=== PATIENT | female | born 1950 | race Caucasian/White ===

== ENCOUNTER → 2016-11-16 | Day surgery (SDC) | payer MEDICARE ==
[~2016-11-16] MED LIST: ALPR0.5T3 PO; BUPIVACAINE HCL PF 0.75% 30 ML VIAL ONE; CALC600T10 PO; HYDR-3580 PO; LUTE20CA PO; MULT1TAB84 PO; NATU400T PO; PROPOFOL 200 MG/20 ML AMP IV ONE; RABE1TAB PO; TEMA30CA PO; TRIAMCINOLONE ACETONIDE 40 MG/ML VIAL I-ARTICULR ONE
--- NOTE | 2016-11-18 19:19 | M6 ---
cc: JUSTIN MATA M.D. DATE 11/16/2016 1950 PROCEDURE Fluoroscopically guided injection right lumbar facet joints (right L2-3, L3-4, L4-5 and L5-S1 facet joints). History and physical was completed and signed. Consent was signed. Procedure site was marked. Medications were listed and reconciled. Pain score was recorded. Allergies were noted. Time out was taken. Fluoroscopy time was recorded where applicable. Sedation was administered or directed by Dr. Mata. The patient was given oxygen. The patient was monitored by a registered nurse. Total procedure time was greater than 15 minutes. IV was started, blood pressure cuff, pulse oximeter and EKG were applied. The patient was placed in the prone position on a Ricardo table sedated with small amounts of propofol titrated to effect. Vital signs were monitored and remained stable throughout the procedure. Lumbar area was prepped with alcohol and 10% Betadine solution and draped with sterile drapes. Fluoroscopy was used in a [facility] dog view to clearly visualize the right lumbar facet joints at L2-3, L3-4, L4-5 and L5-S1. Separate sterile 3-1/2-inch 25-gauge spinal needles were advanced into these joints under fluoroscopic guidance. There was negative aspiration for blood or any other type of fluid. At each location, the patient was given 1 mL Marcaine 0.75% which contained 10 mg of Kenalog. Following the procedure, the patient was taken to the recovery room with stable vital signs neurologically intact. She will be evaluated immediately and with followup to determine if she has a subjective decrease in her usual pain and a corresponding objective increase in her functional capabilities. W. MD JOEY Herrera/ /9:06 AM /7:11 PM
== END | disposition home or self-care (01) ==
LOC: PHSDC 07:36
PROVIDERS: ATTEND Pain Medicine Interventional Pain Medicine
DX: M54.5 Low back pain (principal)
CPT/HCPCS: 64493; 64494; 64495; 99152; J3301

== ENCOUNTER → 2017-05-10 | Day surgery (SDC) | payer MEDICARE ==
[~2017-05-10] MED LIST changes: +ALEV220T14 PO; -BUPIVACAINE HCL PF 0.75% 30 ML VIAL ONE; +IOHEXOL 180 MG/ML 20 ML VIAL (for RAD DIAG) EPIDURAL ONE; +LACTCAP8 PO; +LIDOCAINE HCL 1% 30 ML VIAL NERV BLOCK ONE; +MEPERIDINE HCL 25 MG/ML VIAL IV ONE; -TRIAMCINOLONE ACETONIDE 40 MG/ML VIAL I-ARTICULR ONE; +TRIAMCINOLONE ACETONIDE 40 MG/ML VIAL NERV BLOCK ONE
--- NOTE | 2017-05-10 09:50 | M6 ---
cc: Herman MATA DATE 05/10/2017 DATE OF 1950 PROCEDURE Fluoroscopically guided left L4-5 and left L5-S1 transforaminal epidural steroid injection. PROCEDURE NOTE History and physical was completed and signed. Consent was signed. Procedure site was marked. Medications were listed and reconciled. Pain score was recorded. Allergies were noted. Time out was taken. Fluoroscopy time was recorded where applicable. Sedation was administered or directed by Dr. Mata. The patient was given oxygen. The patient was monitored by a registered nurse. Total procedure time was greater than 15 minutes. An IV was started, blood pressure cuff, pulse oximeter and EKG were applied. The patient was placed in the prone position on a Ricardo table, sedated with small amounts of Versed and propofol titrated to effect. Vital signs were monitored and remained stable throughout the procedure. The patient remained responsive throughout the procedure. The lumbar area was scrubbed with antimicrobial solution, prepped with 10% Betadine solution, and draped with sterile drapes. Fluoroscopy was used in both the AP and lateral projections to clearly visualize the left L4-5 and left L5-S1 neural foramen. Then a sterile 22-gauge, 3-1/2 inch Chiba needle was advanced under fluoroscopic guidance into the dorsal most aspect of the foramen. There was negative aspiration for blood or CSF. There was no reported paresthesias by the patient. There was no washout of 2 mL of Omnipaque. Then after waiting approximately 60 seconds, the patient was slowly given 3 mL of 1% Xylocaine, 3 mL of Omnipaque and 40 mg of Kenalog at that location. Following this, the patient was taken to the recovery room with stable vital signs, neurologically intact. MD JOEY Dickens/TIMO /9:36 AM /9:43 AM
== END | disposition home or self-care (01) ==
LOC: PHSDC 08:21
PROVIDERS: ATTEND Pain Medicine Interventional Pain Medicine
DX: M54.9 Dorsalgia, unspecified (principal)
CPT/HCPCS: 64483; 64484; 99152; J2175; J3301; Q9965

== ENCOUNTER 2017-06-11 14:41 | Emergency (ER) | payer MEDICARE ==
[~2017-06-11] VITALS: Ht 152.4 cm; Wt 56.3 kg
[~2017-06-11 14:41] MED LIST changes: -IOHEXOL 180 MG/ML 20 ML VIAL (for RAD DIAG) EPIDURAL ONE; -LIDOCAINE HCL 1% 30 ML VIAL NERV BLOCK ONE; -MEPERIDINE HCL 25 MG/ML VIAL IV ONE; -NATU400T PO; -PROPOFOL 200 MG/20 ML AMP IV ONE; -TRIAMCINOLONE ACETONIDE 40 MG/ML VIAL NERV BLOCK ONE
[2017-06-11 14:59] VITALS: BP 157/70; PULSE 89; RESP 16; TEMP 98.1; O2SAT 98
--- NOTE | 2017-06-11 15:30 | PD ---
HPI Chief Complaint: Musculoskeletal Complaint Time Seen by Provider: 15:25 Travel History International Travel<30 days: No Contact w/Intl Traveler<30days: No Traveled to known affect area: No History of Present Illness HPI 66-year-old female presents emergency Department with complaint of right lateral foot pain after tripping over a curb and falling. Denies hitting her head or loss of consciousness. Denies neck pain or back pain. Denies paresthesias, loss of sensation, decreased range of motion, decreased rate to the affected extremity. Has been ambulatory on the affected foot. Describes pain as a throbbing, stabbing sensation. Rates pain 6/10. Worse with ambulation. Decreased at rest. Has taken Aleve for symptom management. Has no other medical complaints. No known allergies. No other modifying factors or associated signs and symptoms. PFSH Past Medical History Cancer: Yes (hx of cervical cancer) Cardiovascular Problems: No Diabetes: No Endocrine: No Genitourinary: No Hepatitis: No Hiatal Hernia: No Immune Disorder: No Musculoskeletal: Yes (chronic back pain) Neurologic: No Psychiatric: Yes (pt states she takes lowest dose xanax prn) Reproductive: No Respiratory: No Thyroid Disease: No Tetanus Vaccination: Unknown Influenza Vaccination: Yes ?: Not Past Surgical History Gynecologic Surgery: Yes (hysterectomy) Hysterectomy: Yes Pacemaker: No Social History Alcohol Use: Yes (occassional ) Tobacco Use: No Substance Use: No Allergies-Medications (Allergen,Severity, Reaction): Coded Allergies: No Known Allergies (Verified Adverse Reaction, Unknown, 06/11/17) Reported Meds & Prescriptions Reported Meds & Active Scripts Active Reported Rabeprazole (Rabeprazole Sodium) 20 Mg Tab 20 Mg PO DAILY Review of Systems Except as stated in HPI: all other systems reviewed are Neg Physical Exam Narrative GENERAL: Well-nourished, well-developed female patient, in no acute distress SKIN: Warm and dry. HEAD: Atraumatic. Normocephalic. EYES: Pupils equal and round. No scleral icterus. No injection or drainage. ENT: Mucosa pink and moist. Airway patent. NECK: Trachea midline. CARDIOVASCULAR: Regular rate. RESPIRATORY: No accessory muscle use. GASTROINTESTINAL: Flat. MUSCULOSKELETAL: Lateral aspect of right foot with minimal edema and ecchymosis noted; no obvious deformity; with tenderness on palpation. Right lower extremity is supple and nontense with 2+ pedal pulse and sensory intact. No obvious deformities. No clubbing. No cyanosis. No edema. NEUROLOGICAL: Awake and alert. Oriented 3. No obvious cranial nerve deficits. Motor grossly within normal limits. Normal speech. PSYCHIATRIC: Appropriate mood and affect; insight and judgment normal. Data Data Last Documented VS Vital Signs Date Time Temp Pulse Resp B/P (MAP) Pulse Ox O2 Delivery O2 Flow Rate FiO2 06/11/17 14:59 98.1 89 16 157/70 (99) 98 Orders Orders Foot, Complete ([id number]) (06/11/17 15:28) [facility] Medical Decision Making Medical Screen Exam Complete: Yes Emergency Medical Condition: Yes Medical Record Reviewed: Yes Differential Diagnosis Foot contusion, foot fracture, foot sprain Narrative Course 66-year-old female with right foot injury after mechanical fall. Denies hitting her head or loss of consciousness. Denies neck pain or back pain. Patient took Aleve prior to arrival. Right foot x-ray ordered. 1641: Right foot x-ray concludes: Last 24 hours Impressions Foot X-Ray 06/11/17 1528 Signed Impressions: Service Date/Time: Sunday, June 11, 2017 16:00 - CONCLUSION: Soft tissue swelling without fracture. Isidro Kearns MD X-ray report discussed with the patient. Servando bandage and crutches provided for support. Ibuprofen prescribed for home. Instructed patient to follow up with primary care provider. Patient verbalizes understanding and agreement with treatment plan. Patient is medically cleared and stable for discharge. Discussed reasons to return to the emergency department. Patient agrees with treatment plan. The patients vital signs are stable and the patient is stable for outpatient follow-up and treatment. Patient discharged home, stable and in no acute distress. Diagnosis Primary Impression: Right foot injury Qualified Codes: S99.921A - Unspecified injury of right foot, initial encounter Referrals: Primary Care Physician Patient Instructions: Crutch Instructions (ED), Foot Contusion (ED), Foot Sprain (ED), General Instructions Additional Instructions: Tylenol or ibuprofen as directed and as needed for pain and inflammation Rest, ice, compress, and elevate extremity to decrease pain and inflammation Servando bandage for compression and support Crutches, cane, walker for support Avoid aggravating activity; increase activity as tolerated Follow-up with primary care provider Return to the emergency department immediately with worsening of symptoms Med/Other Pt SpecificInfo: Prescription(s) given Scripts Ibuprofen (Ibuprofen) 800 Mg Tab 800 MG PO Q8H Y for PAIN SCALE 1 TO 10, #20 TAB 0 Refills Prov: Hina Ward 06/11/17 Disposition: 01 DISCHARGE HOME Condition: Stable Hina Ward Jun 11, 2017 15:30
--- NOTE | 2017-06-11 16:16 | RADRPT ---
EXAM DATE/TIME: 06/11/2017 16:00 [facility] COMPARISON: No previous studies available for comparison. INDICATIONS : Right foot pain. MEDICAL HISTORY : None. SURGICAL HISTORY : None. ENCOUNTER: Initial ACUITY: 2 days PAIN SCORE: 4/10 LOCATION: Right foot. FINDINGS: Three view examination of the right foot demonstrates soft tissue swelling adjacent to the fifth meta tarsal without dislocation, or fracture. The tarsal bones appear intact. The interphalangeal and m etatarsophalangeal joints are intact. The calcaneus is intact. Bony mineralization is normal. Small plantar calcaneal spur. CONCLUSION: Soft tissue swelling without fracture. Isidro Kearns MD on June 11, 2017 at 16:13 Board Certified Radiologist. This report was verified electronically.
[2017-06-11] MEDS ORDERED: IBUP1TAB7 PO (16:43)
== END 2017-06-11 17:13 | disposition home or self-care (01) ==
LOC: PHEFT 14:41
DX: S99.921A Unspecified injury of right foot, initial encounter (principal); Z87.39 Personal history of other diseases of the musculoskeletal system and connective tissue; Z86.59 Personal history of other mental and behavioral disorders; Z85.41 Personal history of malignant neoplasm of cervix uteri; W01.0XXA Fall on same level from slipping, tripping and stumbling without subsequent striking against object, initial encounter
CPT/HCPCS: 73630; 99283; E0113

== ENCOUNTER → 2017-12-05 | Day surgery (SDC) | payer MEDICARE ==
[~2017-12-05] MED LIST changes: +ALPR0.25 PO; -ALPR0.5T3 PO; +ASPE10GE TOPICAL; -CALC600T10 PO; +D200CAP PO; +IBUP1TAB7 PO; +LACT1CAP18 PO; -LACTCAP8 PO; +LIDOCAINE HCL 1% 30 ML VIAL INFIL ONE; +MEPERIDINE HCL 50 MG/ML VIAL IV ONE; +MIDAZOLAM HCL 2 MG/2 ML VIAL IV ONE; -MULT1TAB84 PO; +MULTTAB67 PO; +PROPOFOL 200 MG/20 ML AMP IV ONE; +SODIUM CHLORIDE 0.9% 10 ML VIAL ONE; +methylPREDNISolone ACETATE 40 MG/ML VIAL I-ARTICULR ONE
--- NOTE | 2017-12-05 09:07 | M6 ---
cc: Herman Mata MD DATE: 12/05/2017 PROCEDURE: Radiofrequency rhizotomy multiple bilateral lumbar facet joints (bilateral L3-4, L4-L5 and L5-S1 facet joints). History and physical was completed and signed. Consent was signed. Procedure site was marked. Medications were listed and reconciled. Pain score was recorded. Allergies were noted. Time out was taken. Fluoroscopy time was recorded where applicable. Sedation was administered or directed by Dr. Mata. The patient was given oxygen. The patient was monitored by a registered nurse. Total procedure time was greater than 15 minutes. Three levels are being done because imaging studies show arthritis in all lumbar facet joints and because each facet joint is innervated by the medial branches from the nerves above and below that particular joint. The patient reported 50% or greater pain relief from previous diagnostic facet joint blocks done with fluoroscopic guidance. PROCEDURE NOTE: An IV was started, blood pressure cuff, pulse oximeter and EKG were applied. The patient was placed in the prone position on a Ricardo table, sedated with small amounts of Versed and fentanyl and propofol titrated to effect. Vital signs were monitored and remained stable throughout the procedure. The lumbar area was scrubbed with antimicrobial solution, prepped with 10% Betadine solution, draped with sterile drapes. Fluoroscopy was used in a slightly oblique angle ([facility] dog view) to clearly visualize the target areas which were the cephalad most medial angle of the transverse processes as they met the pedicle in the anatomical location of the medial branch of the posterior primary ramus on the bilateral L3-4, L4-5 and L5-S1 facet joints. The skin was infiltrated with 1% Xylocaine using a 27 gauge needle. An insulated 20 gauge radiofrequency needle with a 10-mm curved tip was advanced to the above-mentioned target areas. Fluoroscopy was used to confirm the needle was properly placed and not near the nerve root. At no time did the patient report any paresthesias down the lower extremity. Once properly positioned thermal lesions took place at 80 degrees Centigrade x 100 seconds at each location. Then, a small amount of Depo-Medrol was injected at each location for a total of 40 mg of Depo-Medrol. Following this, the patient was taken to the recovery room with stable vital signs, neurologically intact. W. MD JOEY Herrera/SABA , 08:44 AM , 09:06 AM
== END | disposition home or self-care (01) ==
LOC: PHSDC 06:52
PROVIDERS: ATTEND Pain Medicine Interventional Pain Medicine
DX: M54.5 Low back pain (principal)
CPT/HCPCS: 64635; 64636; 99152; 99153; J1030; J2175; J2250

== ENCOUNTER 2018-05-22 08:22 | Inpatient (IN) ==
--- NOTE | 2018-05-20 18:15 | MH ---
cc: Eleazar Arriola MD DATE OF ADMISSION: 05/22/2018 HISTORY OF PRESENT ILLNESS: She is scheduled to be admitted to the hospital on May 2018. ADMITTING DIAGNOSIS: Osteoarthritis of the right knee. HISTORY OF PRESENT ILLNESS: The patient is a 67-year-old white female who has had a 2-1/2 year history of progressive right knee pain. She had noted the onset of her symptoms as related to exercise activities while participating in a spinning class. She became symptomatic with generalized soreness about her right knee for which she had utilized Aspercreme that did prove to be of some benefit, as well as taking Advil for pain management. She was evaluated in the office in 11/2015 and at that time, her x-ray studies did reveal obvious degenerative changes, primarily INVOLVING the medial compartment with near [id number] apposition. The patient was diagnosed as having an arthritic condition for which treatment options were reviewed. At that time, the patient elected to continue with conservative management, which included initiating diclofenac as an oral anti-inflammatory agent and conforming to exercise activities on her own supervision. Her symptoms persisted and when seen in followup evaluation, she did receive an intraarticular steroid injection as part of her ongoing management. With the passage of time, she became progressively more symptomatic with pain that began to limit all weightbearing activities. In spite of her lingering symptoms, she was reluctant to proceed with any additional intervention and thus continued to take diclofenac and exercise under her own supervision. She also participated in an exercise program that unfortunately did not prove to be of any lasting benefit. She returned to the office in the more recent past, indicating that she was becoming progressively more symptomatic with pain that began to definitely interfere with her daily routine. Her x-ray studies revealed obvious degenerative change with [id number] apposition about the medial compartment, associated with a varus deformity. Findings and treatment options were reviewed. The pros and cons of continuing with conservative management versus operative intervention that would involve a total knee arthroplasty were outlined in detail. Emphasis was made regarding the fact that the decision to proceed with surgery would be left entirely to the patient's discretion. The patient readily admitted that she had progressed to a point in time where she felt that she had failed all modes of conservative treatment and, given the progressive nature of her symptoms, she was ready to proceed accordingly. In compliance with her wishes, she has currently been scheduled for admission in order that the above be accomplished. Her past medical history, hospitalizations and surgeries have included bilateral carpal tunnel release, decompression of the first dorsal compartment of her left wrist, arthroscopic surgery of her left knee, abdominal hysterectomy, D and C, colonoscopy and radiofrequency ablation about her lumbar spine for history of chronic low back pain. Additional treatment in this regard has included epidural steroid injections. The patient's medical illnesses include, in addition to her arthritis involving the right knee, anxiety disorder, chronic neck pain, chronic sinusitis, GERD syndrome, hyperlipidemia, hypothyroidism, insomnia, and lumbar spinal stenosis. CURRENT MEDICATIONS: 1. Alprazolam 0.25 mg daily. 2. Hydrocodone 7.5 mg daily. 3. Nasonex 50 mcg on a p.r.n. basis. 4. Probiotic daily. 5. Rabeprazole 20 mg daily. 6. Temazepam 30 mg p.r.n. sleep. ALLERGIES: THE PATIENT DENIES ANY KNOWN DRUG ALLERGIES. SHE HAS AN ALLERGIC REACTION TO ANIMAL HAIR AND OAK TREES. REVIEW OF SYSTEMS: Glasses are utilized for reading purposes. Denies headache, seizure, or syncope. Occasional sinus congestion. No epistaxis. Auditory acuity intact. No tinnitus. No bleeding gums or dysphagia. Denies cough, shortness of breath, upper respiratory infection, pneumonia, or tuberculosis. No angina, heart disease. Her appetite is good. Bowel movements are regular. No hepatitis, gallbladder disease, ulcers or hemorrhoids. No urinary tract infection, no kidney stones, no previous fractures. No psychiatric illness. Remaining review of systems is unremarkable and noncontributory. FAMILY HISTORY: 33 years, is 70 years of age and in good health, 2 stepsons, 1 with a history of drug abuse. Family history is positive for hypertension and Parkinson's disease. SOCIAL HISTORY: The patient completed a high school education, with additional college credits. She is currently employed in a [employer] store. She denies active use of tobacco for more than 20 years, having been a 10 pack user in her past. Ethanol consumption is very limited on a social basis. PHYSICAL EXAMINATION VITAL SIGNS: Height 5 feet 2 inches, weight 122 pounds. GENERAL: An alert, oriented, responsive 67-year-old white female who sits quietly upon the examination table with no apparent distress. HEAD, EARS, EYES, NOSE AND THROAT: Pupils are equally round and reactive to light. Extraocular movements full. Sclerae are clear. External nares clear. External auditory canals clear. Dental intact. Mucous membranes pink and moist. Pharynx clear. NECK: Supple with active range of motion and mild discomfort at the extremes of motion that the patient reports has been chronic in nature. Carotid pulse is palpable bilaterally. Trachea midline. Thyroid without enlargement. LUNGS: Clear to auscultation and percussion. No CVA tenderness. No discomfort throughout the dorsolumbar spine. HEART: Regular rate and rhythm. No murmur or gallop. ABDOMEN: Soft, nontender, bowel sounds present. PELVIC: Deferred. EXTREMITIES: Right knee, no obvious swelling or effusion. There is medial joint line tenderness, without palpable deformity. Apprehension and compression sign are negative. Limited mobility in the 110 degree range of flexion with pain at the extreme of motion. No associated crepitation or sensation of instability. Kristy test and drawer sign are negative. Pivot shift and Evangelist sign positive for medial compartment pain. Straight leg raising unremarkable at 80 degrees. Distal sensory grossly intact. Mild antalgic gait. NEUROLOGIC: Cranial nerves 2-12 grossly intact. IMPRESSION: Osteoarthritis, right knee. PLAN: Right total knee arthroplasty. The nature of the planned surgical procedure, the potential complications and risks associated, the expectations of surgery and the consent form were thoroughly reviewed with the patient prior to her admission to the hospital. Tori has indicated her full understanding regarding all of the above and given consent to proceed with treatment as outlined. Medical evaluation and clearance for surgery completed by her primary care physician, Dr. Zulema Schultz. MD KENNETH Price/za , 05:17 PM , 05:33 PM
[~2018-05-22 08:22] MED LIST changes: -ALEV220T14 PO; -ALPR0.25 PO; -ASPE10GE TOPICAL; -D200CAP PO; -HYDR-3580 PO; -IBUP1TAB7 PO; -LACT1CAP18 PO; -LIDOCAINE HCL 1% 30 ML VIAL INFIL ONE; -LUTE20CA PO; -MEPERIDINE HCL 50 MG/ML VIAL IV ONE; -MIDAZOLAM HCL 2 MG/2 ML VIAL IV ONE; -MULTTAB67 PO; -PROPOFOL 200 MG/20 ML AMP IV ONE; -RABE1TAB PO; -SODIUM CHLORIDE 0.9% 10 ML VIAL ONE; -TEMA30CA PO; +ceFAZolin 2 GM Premix Inj 2 GM/50 ML PIGGYBACK IV.SIG ONE; -methylPREDNISolone ACETATE 40 MG/ML VIAL I-ARTICULR ONE
[2018-05-22] MEDS ORDERED: fentaNYL Citrate Inj 250 MCG/5 ML Ampul ONE (09:21)
[2018-05-22] MEDS ORDERED: fentaNYL Citrate Inj 100 MCG/2 ML Ampul ONE ×2 (09:22→11:41)
[2018-05-22] MEDS ORDERED: Famotidine PF Inj 20 MG/2 ML Vial ONE (09:22)
[2018-05-22] MEDS ORDERED: Ketamine Inj 50 MG/5 ML Syringe IV.PUSH ONE (09:27)
[2018-05-22] MEDS ORDERED: Bupivacaine Liposomal PF 1.3% Inj 20 ML Vial ONE (09:30)
[2018-05-22] MEDS ORDERED: Sodium Chlor 0.9% Inj 500 ML IV.CONT ONE (09:30)
[2018-05-22] MEDS ORDERED: Chlorhexidine Gluconate 2% 1 Pack (2 Cloths) TOPICAL ONE (09:30)
[2018-05-22] MEDS ORDERED: Metoprolol Tartrate 25 MG Tablet PO ONE (09:30)
[2018-05-22] MEDS ORDERED: Lidocaine PF 1% Inj 5 ML Syringe OTHER ONE (09:52)
[2018-05-22] MEDS ORDERED: Neostigmine Inj 5 MG/5 ML Syringe IV.PUSH ONE (09:52)
[2018-05-22] MEDS ORDERED: Glycopyrrolate Inj 1 MG/5 ML Syringe IV.PUSH ONE (09:52)
[2018-05-22] MEDS ORDERED: ceFAZolin 2 GM Premix Inj 2 GM/50 ML PIGGYBACK IV.SIG SCH (10:00)
[2018-05-22] MEDS ORDERED: Tranexamic Acid Inj 1,000 MG in Sodium Chlor 0.9% Inj 100 ML IV.SIG SCH ×2 (10:00→13:00)
[2018-05-22] MEDS ORDERED: Sodium Chlor 0.9% Inj 50 ML, Ropivacaine 0.5% PF Inj 24.63 ML, Ketorolac Inj 30 MG, EPI... P-ARTICULR SCH ×5 (10:00)
[2018-05-22] MEDS ORDERED: *morphine SULFATE 4 MG/ML PERIprocedure ONLY ONE ×3 (12:12→13:00)
[2018-05-22] MEDS ORDERED: ALPRAZolam 0.25 MG Tablet PO PRN (12:19)
[2018-05-22] MEDS ORDERED: *Meperidine Inj 25 MG/ML Vial PERIprocedural Use ONLY ONE (12:20)
[2018-05-22] MEDS ORDERED: Acetaminophen 325 MG Tablet PO PRN (12:22)
[2018-05-22] MEDS ORDERED: Morphine Inj 4 MG/ML Vial IV.PUSH PRN (12:22)
[2018-05-22] MEDS ORDERED: Naloxone Inj 0.4 MG/ML Vial IV.PUSH PRN (12:22)
[2018-05-22] MEDS ORDERED: Bisacodyl 10 MG Supp RECTAL PRN (12:22)
[2018-05-22] MEDS ORDERED: Aluminum/Magnesium/Simethacone Susp 30 ML UDC PO PRN (12:22)
[2018-05-22] MEDS ORDERED: Tranexamic Acid Inj 1,000 MG in Sodium Chlor 0.9% Inj 100 ML IV.SIG ONE (12:22)
[2018-05-22] MEDS ORDERED: Post-op Orders (for Pharmacy) OTHER STA (12:22)
[2018-05-22] MEDS ORDERED: Morphine Inj 30 MG/30 ML PCA.VIAL PCA PRN (12:22)
--- NOTE | 2018-05-22 13:05 | XR ---
EXAM DATE: 05/22/2018 12:21 PM EDT AGE/SEX: 67 years / Female INDICATIONS: Post op right total knee replacement. CLINICAL DATA: This is the patient's initial encounter. Patient reports that signs and symptoms have been present for 1 day and indicates a pain score of 9/10. MEDICAL/SURGICAL HISTORY: None. None. COMPARISON: No prior exams available for comparison. FINDINGS: A total knee arthroplasty is noted. The tibial and femoral components appear well seated. Surgical dr grant and subcutaneous air are noted. No fractures. CONCLUSION: Postop changes right knee arthroplasty. Electronically signed by: Jericho Ortega MD 05/22/2018 1:04 PM EDT
--- NOTE | 2018-05-22 13:14 | MP ---
cc: Eleazar Arriola MD DATE OF OPERATION: DATE OF SURGERY: 05/22/2018 PREOPERATIVE DIAGNOSIS: Osteoarthritis of the right knee. POSTOPERATIVE DIAGNOSIS: Osteoarthritis of the right knee. PROCEDURE PERFORMED: Right total knee arthroplasty. SURGEON: Eleazar Arriola MD ANESTHESIA: General endotracheal. INDICATIONS: This is a 67-year-old white female with a 2-1/2 year history of progressive right knee pain, onset being related to exercise activities while participation in a spinning class. The patient became symptomatic with generalized soreness about her right knee for which she had utilized Aspercreme that initially did prove to be of some benefit while also taking Advil for additional pain management. She underwent orthopedic evaluation in November 2015 and at that time, her x-ray studies did reveal obvious degenerative changes, primarily involving the medial compartment with near [id number] apposition. The patient was diagnosed as having an arthritic condition for which treatment options were reviewed. She elected to continue with conservative management which included taking diclofenac as an alternative anti-inflammatory agent and conforming to exercise activities under own supervision. Her symptoms persisted and she was later treated with intraarticular steroid injection as well as her ongoing management. With the passage of time, she became progressively more symptomatic with pain that began to limit all weightbearing activities. In spite of her lingering symptoms, she was reluctant to proceed with any additional intervention while continuing to take diclofenac and exercising routinely. She was also participating in an exercise program, but unfortunately did not provide her any lasting benefit. She returned to the office in the more recent past indicating that she was becoming progressively more symptomatic with pain that began to definitely interfere with her daily routine. Her x-ray studies revealed obvious degenerative change with [id number] apposition about the medial compartment associated with a varus deformity. Findings and treatment options were again reviewed. The pros and cons of continuing with conservative management versus operative intervention that would involve a total knee arthroplasty were outlined in detail. Emphasis was made regarding the fact that the decision to proceed with surgery would be left entirely to the patient's discretion. The patient readily admitted that she had progressed at that point in time where she felt she had failed all modes of conservative treatment and given the progressive nature of her pain, she was ready to proceed with surgery as discussed. In compliance with her wishes, she was scheduled for admission in order that the above be accomplished. DESCRIPTION OF PROCEDURE: Following the induction of satisfactory general anesthesia with endotracheal intubation as completed per the Department of Anesthesia, a tourniquet was established around the proximal portion of the right lower extremity. The extremity proper was isolated with a U-drape, thereafter being prepped with Betadine solution and draped into a sterile field in the routine manner. Prior to initiation of the actual procedure, the standard timeout protocol was completed. All parameters were appropriately addressed and confirmed by operating room personnel. The extremity was elevated for approximately 1 minute and the tourniquet was inflated to 250 mmHg pressure. A sharp skin incision was initiated midline over the anterior aspect of the knee and developed through underlying subcutaneous tissue with hemostasis maintained by electrocautery. By deepening dissection, the anterior capsule was exposed, the medial capsulotomy completed, and the patella subluxed in a lateral orientation. Examination of the joint space revealed severe degenerative changes throughout the medial compartment with extension into the lateral compartment, especially involving the lateral femoral condyle. Additional involvement of the patellofemoral joint was noted. The articular surface of the patella was resected with power saw. The 3 holed guide was utilized for establishing post-holes. The anterior cruciate ligament as well as medial and lateral meniscus structures were sharply excised. A centering hole was placed in the distal aspect of the femur, allowing positioning of the intramedullary guide. The distal femoral cutting jig was attached and the distal femur resected. AP measurement noted 60 mm sizing to be appropriate. The matching cutting block was positioned. The anterior, posterior and chamfer cuts were completed. The tibial plateau was thereafter subluxed in an anterior orientation, allowing positioning of an extramedullary guide. The tibial plateau was resected, measured with 67 mm sizing, determined to be satisfactory. A trial reduction followed utilizing a 60 mm anatomic femoral component, a 67 mm tibial base with both 10 and 12 mm bearing insert trialed. The 12 mm thickness was determined to be the more favorable fit. The knee was readily brought to full extension. There was no laxity with varus and valgus stress at both 0 and 90 degrees flexed posture. Orientation was confirmed as being appropriate with measurement of the pelvic guide through the mechanical access of the knee. A trial reduction followed utilizing a 31 mm standard 3 post-patellar button. Once again, good tracking noted with no tendency towards subluxation. All trial components being removed, the remaining portion of the proximal tibia was prepared for insertion of the permanent component. The joint space was thoroughly lavaged with pulsating antibiotic solution, hemostasis maintained by electrocautery. An autogenous bone plug was inserted into the distal femoral guide hole and thereafter a preparation of Biomet bone cement was utilized in inserting knee components in a sequential fashion, which included a 67 mm fixed cruciate tibial plate to which, a 12 mm Vanguard tibial bearing insert was secured with locking amor. The 60 mm Vanguard femoral component was firmly seated onto the distal femur, excess cement being removed, the knee was brought to full extension and thereafter, the 31 mm patellar button was attached and maintained in place with patellar clamp while cement hardening was completed. Final range of motion assessment noted good tracking and stability throughout the knee. Irrigation was repeated with hemostasis maintained. Autovac drain tubes were inserted through superior stab wounds. The capsule was repaired with 0 Vicryl suture. The remaining portion of the wound was closed in layers in the routine manner, skin margins being reapproximated with a running subcuticular 3-0 Vicryl suture over which Steri-Strips were applied. Xeroform gauze and a bulky dry sterile dressing placed. Tourniquet deflated after 47 minutes of tourniquet time. Anesthesia discontinued and the patient was transferred to a hospital bed and returned to the recovery room in satisfactory condition, having tolerated her operative procedure well. Estimated blood loss was approximately 50 mL as determined per anesthesia. All implants were of the [employer] event organizer. Eleazar Arriola MD [facility]/ , 12:13 PM , 12:26 PM
--- NOTE | 2018-05-22 15:20 | P.CON ---
History of Present Illness Service: Hospitalist Consult date: 05/22/18 Requesting Physician: Eleazar Arriola Reason for Consult: med managment Primary Care Provider: Zulema Schultz MD Chief Complaint: Knee replacement History of Present Illness: The patient is a pleasant 67 year old female with a history of osteoarthritis, chronic pain, lumbar spinal stenosis, hyperthyroid, anxiety and GERD who was admitted to the hospital for total right knee replacement. The patient had a 2-3 year history of progressive right knee pain. Initial x-ray revealed degenrative changes and near [id number] opposition. The patient opted for conservative treatment without relief. After the patient felt that she failed escalating conservative therapy, she opted to undergo surgery. The patient had the surgery on 05/22/[address] Arriola and was admitted. The patient's PCP is Dr. Schultz. Hospitalists were consulted for medication management. PMHx: Chronic neck pain Osteoarthritis Lumbar spinal stenosis Insomnia Hyperthyroid Anxiety GERD SurgHx: Right total knee replacement Left knee arthroscopy Bilateral carpal tunnel release Hysterectomy FamilyHx: Father: CAD Mother: Parkinson's Brother: Head and neck cancer Social: Alcohol: less than 1 drink per month Tobacco: denies Other substances: denies Review of Systems All other systems reviewed negative except as stated in HPI PMFSH - History History Provided By: Patient - Medical History Medical History: Medical History (Last Updated 05/22/18 @ 08:47 by Sloane Damon) Hyperthyroidism Anxiety Back pain GERD (gastroesophageal reflux disease) H/O: hysterectomy Hx of cervical cancer Right knee pain - Surgical History Surgical History: Surgical History (Last Reviewed 05/22/18 @ 08:47 by Sloane Damon) History of carpal tunnel release of both wrists Hx of arthroscopy of left knee - Tobacco History Second Hand Smoke Exposure: No Tobacco Use In Past 30 Days: No Smoking Status: Never smoker - Alcohol History How Often Do You Have a Drink Containing Alcohol: Monthly or less - Substance Use History Substance History: No History of Abuse - Travel History Recent Travel in the [place] Within the Last 8 Weeks: No Recent Travel Out of the Country Within the Last 8 Weeks: No Medications and Allergies Active Medications: Active Medications Acetaminophen (Tylenol) 650 mg PO Q6H PRN PRN Reason: FEVER > 102 F Hydrocodone Bitart/Acetaminophen (Honaker 5/325) 1 tab PO Q4H PRN PRN Reason: PAIN LESS THAN 5 ON SCALE Hydrocodone Bitart/Acetaminophen (Honaker 5/325) 2 tab PO Q6H PRN PRN Reason: PAIN SCALE 5 TO 10 Al Hydrox/Mg Hydrox/Simethicone (Mag-Al Plus Susp Liq) 30 ml PO Q6H PRN PRN Reason: INDIGESTION Al Hydroxide/Mg Hydroxide (Milk Of Magnesia Liq) 30 ml PO BID PRN PRN Reason: Mild Constipation Alprazolam (Xanax) 0.25 mg PO Q6HR PRN PRN Reason: Anxiety Aspirin (Aspirin) 325 mg PO BID BANG Bisacodyl (Dulcolax Supp) 10 mg RECTAL DAILY PRN PRN Reason: SEVERE CONSITIPATION Lactated Ringer's (Lr 1000 Ml Inj) 1,000 mls @ 30 mls/hr IV.CONT .Q24H ONE Stop: 05/23/18 09:29 Last Infusion: 05/22/18 11:43 Dose: Infused Sodium Chloride (Ns Inj) 500 mls @ 30 mls/hr IV.CONT .[id number] ONE Stop: 05/23/18 02:09 Last Admin: 05/22/18 09:50 Dose: Not Given Cefazolin Sodium/Dextrose (Ancef 2 Gm Premix Inj) 2 gm in 50 mls @ 100 mls/hr IV.SIG PLEAT PATTERNMAKER [facility] Stop: 05/26/18 09:59 Last Infusion: 05/22/18 10:35 Dose: Infused Tranexamic Acid 1,000 mg/ (Sodium Chloride) 110 mls @ 200 mls/hr IV.SIG ONCE [facility] Stop: 05/22/18 16:00 Last Infusion: 05/22/18 10:35 Dose: Infused Tranexamic Acid 1,000 mg/ (Sodium Chloride) 110 mls @ 200 mls/hr IV.SIG ONCE [facility] Stop: 05/22/18 19:00 Cefazolin Sodium 1,000 mg/ (Sodium Chloride) 100 mls @ 200 mls/hr IV.SIG Q6H [facility] Stop: 05/23/18 04:29 Lactated Ringer's (Lr 1000 Ml Inj) 1,000 mls @ 80 mls/hr IV.CONT .[id number] BANG Morphine Sulfate (Morphine Inj) 30 mg in 30 mls @ 0 mls/hr ELECTRO MECHANICAL DESIGNER UNSCH PRN PRN Reason: per ELECTRO MECHANICAL DESIGNER parameters Stop: 05/23/18 12:21 Lactobacillus Acidophilus (Lactinex) 1 tab PO DAILY [facility] Lactulose (Lactulose Liq) 30 ml PO DAILY PRN PRN Reason: SEVERE CONSITIPATION Miscellaneous Information ([facility] Nursing Information) 0 each OTHER UNSCH PRN PRN Reason: SEE DOSE INSTRUCTIONS Miscellaneous Information ([facility] Nursing Information) 0 each OTHER UNSCH PRN PRN Reason: SEE LABEL COMMENTS Stop: 05/23/18 12:08 Morphine Sulfate (Morphine Inj) 2 mg IV.PUSH Q3H PRN PRN Reason: BREAKTHROUGH PAIN Multivitamins (Theragran) 1 tab PO DAILY [facility] Naloxone HCl (Narcan Inj) 0.4 mg IV.PUSH PRN PRN PRN Reason: Resp rate < 10 Ondansetron HCl (Zofran Inj) 4 mg IV.PUSH Q6H PRN PRN Reason: NAUSEA OR VOMITING Pantoprazole Sodium (Protonix) 40 mg PO DAILY PRN PRN Reason: INDIGESTION Povidone Iodine (Betadine 7.5% Scrub) 1 applicatio TOPICAL ONCE BANG Stop: 05/26/18 09:59 Last Admin: 05/22/18 09:20 Dose: 1 applicatio Senna/Docusate Sodium (Mey-Colace) 1 tab PO BID [facility] Sennosides (Senokot) 17.2 mg PO BID PRN PRN Reason: Moderate Constipation Sodium Chloride (Ns Flush) 2 ml IV.FLUSH BID BANG Sodium Chloride (Ns Flush) 2 ml IV.FLUSH PRN PRN PRN Reason: FLUSH AFTER USING IV ACCESS Vitamin D (Vitamin D3) 5,000 unit PO DAILY [facility] Zolpidem Tartrate (Ambien) 5 mg PO HS PRN PRN Reason: INSOMNIA Allergies Allergy/AdvReac Type Severity Reaction Status Date / Time No Known Allergies Allergy Unverified 05/22/18 08:48 Home Medications Medication Instructions Recorded Confirmed Type alprazolam 0.25 mg PO Q6HR PRN 05/09/18 05/22/18 History cholecalciferol (vitamin D3) 5,000 unit PO DAILY 05/09/18 05/22/18 History [Vitamin D3] hydrocodone-acetaminophen 1 tab PO Q6H PRN 05/09/18 05/22/18 History lactobacillus comb no.10 20,000 mmu cells PO DAILY 05/09/18 05/22/18 History [Probiotic] lutein 20 mg PO DAILY 05/09/18 05/22/18 History menthol [Aspercreme Heat] 1 applic TOPICAL DAILY 05/09/18 05/22/18 History multivitamin [Daily Multiple] 1 tab PO DAILY 05/09/18 05/22/18 History naproxen sodium [Aleve] 220 mg PO BID PRN 05/09/18 05/22/18 History rabeprazole 20 mg PO DAILY PRN 05/09/18 05/22/18 History temazepam 30 mg PO HS PRN 05/09/18 05/22/18 History Physical Exam Vital signs: Vital Signs 05/22/18 09:12 05/22/18 09:16 05/22/18 12:08 Temperature 98.5 F 96.5 F L Pulse Rate 75 75 93 H Respiratory Rate 18 15 Blood Pressure 132/73 131/76 Pulse Oximetry 100 100 100 05/22/18 12:15 05/22/18 12:30 05/22/18 12:45 Temperature Pulse Rate 93 H 83 82 Respiratory Rate 18 16 16 Blood Pressure 126/52 L 115/56 L 137/63 Pulse Oximetry 100 100 100 05/22/18 13:00 05/22/18 13:15 05/22/18 13:30 Temperature Pulse Rate 83 82 82 Respiratory Rate 15 15 15 Blood Pressure 134/61 141/61 H 137/60 Pulse Oximetry 100 100 100 05/22/18 14:00 05/22/18 14:30 Temperature Pulse Rate 87 89 Respiratory Rate 16 15 Blood Pressure 137/70 142/71 H Pulse Oximetry 100 100 Intake & Output 05/21/18 05/22/18 05/22/18 18:59 06:59 18:59 Intake Total 1560 / 1560 Output Total 50 / 50 Balance 1510 / 1510 Weight 55.52 kg Intake: IV 1560 / 1560 LR 1000 mL Inj 1,000 ML @ 30 1400 / 1400 mls/hr IV.CONT .Q24H ONE Rx#: [id number] Cyklokapron Inj 1,000 MG In NS 110 / 110 Inj 100 ML @ 200 mls/hr IV.SIG ONCE BANG Rx#:[id number] Ancef 2 GM Premix Inj 2 gm In 50 / 50 50 ml @ 100 mls/hr IV.SIG PLEAT PATTERNMAKER [facility] Rx#:[id number] Output: Estimated Blood Loss 50 / 50 Other: Weight On Admission 55.52 kg Narrative: GENERAL: 67 year old female in NAD, alert and oriented x3. SKIN: Warm and dry. HEAD: Atraumatic. Normocephalic. EYES: Pupils equal and round. No scleral icterus. No injection or drainage. ENT: No nasal bleeding or discharge. Mucous membranes pink and moist. NECK: Trachea midline. No JVD. CARDIOVASCULAR: Regular rate and rhythm. RESPIRATORY: No accessory muscle use. Clear to auscultation. Breath sounds equal bilaterally. GASTROINTESTINAL: Abdomen soft, non-tender, nondistended. Hepatic and splenic margins not palpable. MUSCULOSKELETAL: Extremities without clubbing, cyanosis, or edema. Right leg in cast. Neurovascularly intact. NEUROLOGICAL: Awake and alert. No obvious cranial nerve deficits. Motor grossly within normal limits. Normal speech. PSYCHIATRIC: Appropriate mood and affect; insight and judgment normal. Assessment and Plan - Plan The patient is a pleasant 67 year old female with a history of osteoarthritis, cervical and lumbar spine disease, hyperthyroid, anxiety and GERD who was admitted to the hospital for total right knee replacement. The patient had the surgery on 05/22/[address] Arriola and was admitted. The patient's PCP is Dr. Schultz. Hospitalists were consulted for medication management. Total right knee replacement Dr. Arriola recs Pain management Chronic pain Manage pain as above Hyperthyroid Stable, patient is not on home meds Anxiety Continue home meds GERD Patient is not on daily medication, protonix PRN Code Status: Full
--- NOTE | 2018-05-22 16:37 | P.DCO ---
- Diagnosis (1) Degenerative joint disease of right knee Status: Acute - Physical Therapy Order: Evaluate and treat, Improve ambulation, Strength and gait training - Home Health Nursing Order: Wound care and dressing changes - Home Health Aide Order: To assist in: Bathing and personal care - [place] Order: To evaluate: Support services Order: To provide: Community services - Case Management Consult Yes - Certification I have seen patient Tori Iqbal on 05/22/18. My clinical findings support the need for the requested home health care services because: Limited ability to care for self, High risk of falls I certify that my clinical findings support that this patient is homebound because: Post-op weakness, Unsteady gait/balance, Unsafe to leave home unassisted
--- NOTE | 2018-05-22 17:29 | P.HP ---
History of Present Illness Primary Care Physician: Zulema Schultz MD Chief Complaint: Knee replacement History of Present Illness: The patient is a pleasant 67 year old female with a history of osteoarthritis, chronic pain, lumbar spinal stenosis, hyperthyroid, anxiety and GERD who was admitted to the hospital for total right knee replacement. The patient had a 2-3 year history of progressive right knee pain. Initial x-ray revealed degenrative changes and near [id number] opposition. The patient opted for conservative treatment without relief. After the patient felt that she failed escalating conservative therapy, she opted to undergo surgery. The patient had the surgery on 05/22/[address] Arriola and was admitted. The patient's PCP is Dr. Schultz. Hospitalists were consulted for medication management. PMHx: Chronic neck pain Osteoarthritis Lumbar spinal stenosis Insomnia Hyperthyroid Anxiety GERD SurgHx: Right total knee replacement Left knee arthroscopy Bilateral carpal tunnel release Hysterectomy FamilyHx: Father: CAD Mother: Parkinson's Brother: Head and neck cancer Social: Alcohol: less than 1 drink per month Tobacco: denies Other substances: denies Inpatient Certification: I certify that the inpatient services were ordered in accordance with Medicare regulations governing the order. This includes certification that hospital inpatient services are reasonable and necessary and in the case of services not specified as inpatient-only under 42 CFR 419.22(n), that they are appropriately provided as inpatient services in accordance to with the 2-midnight benchmark under 43 CFR 412.3(e) Estimated Total Length of Stay (Days): 2 Plans for Post Hospital Care: Home health Review of Systems All other systems reviewed negative except as stated in HPI PMFSH - History History Provided By: Patient - Medical History Medical History: Medical History (Last Reviewed 05/22/18 @ 17:28 by Morena Ward MD) Hyperthyroidism Anxiety Back pain GERD (gastroesophageal reflux disease) H/O: hysterectomy Hx of cervical cancer Right knee pain - Surgical History Surgical History: Surgical History (Last Reviewed 05/22/18 @ 17:28 by Morena Ward MD) History of carpal tunnel release of both wrists Hx of arthroscopy of left knee - Tobacco History Second Hand Smoke Exposure: No Tobacco Use In Past 30 Days: No Smoking Status: Never smoker - Alcohol History How Often Do You Have a Drink Containing Alcohol: Monthly or less - Substance Use History Substance History: No History of Abuse - Travel History Recent Travel in the [place] Within the Last 8 Weeks: No Recent Travel Out of the Country Within the Last 8 Weeks: No Medications and Allergies Active Medications: Active Medications Acetaminophen (Tylenol) 650 mg PO Q6H PRN PRN Reason: FEVER > 102 F Hydrocodone Bitart/Acetaminophen ([place] 5/325) 1 tab PO Q4H PRN PRN Reason: PAIN LESS THAN 5 ON SCALE Hydrocodone Bitart/Acetaminophen ([place] 5/325) 2 tab PO Q6H PRN PRN Reason: PAIN SCALE 5 TO 10 Al Hydrox/Mg Hydrox/Simethicone (Mag-Al Plus Susp Liq) 30 ml PO Q6H PRN PRN Reason: INDIGESTION Al Hydroxide/Mg Hydroxide (Milk Of Magnesia Liq) 30 ml PO BID PRN PRN Reason: Mild Constipation Alprazolam (Xanax) 0.25 mg PO Q6HR PRN PRN Reason: Anxiety Aspirin (Aspirin) 325 mg PO BID BANG Bisacodyl (Dulcolax Supp) 10 mg RECTAL DAILY PRN PRN Reason: SEVERE CONSITIPATION Lactated Ringer's (Lr 1000 Ml Inj) 1,000 mls @ 30 mls/hr IV.CONT .Q24H ONE Stop: 05/23/18 09:29 Last Infusion: 05/22/18 11:43 Dose: Infused Sodium Chloride (Ns Inj) 500 mls @ 30 mls/hr IV.CONT .[id number] ONE Stop: 05/23/18 02:09 Last Admin: 05/22/18 09:50 Dose: Not Given Cefazolin Sodium/Dextrose (Ancef 2 Gm Premix Inj) 2 gm in 50 mls @ 100 mls/hr IV.SIG LUMITE INJECTOR BANG Stop: 05/26/18 09:59 Last Infusion: 05/22/18 10:35 Dose: Infused Tranexamic Acid 1,000 mg/ (Sodium Chloride) 110 mls @ 200 mls/hr IV.SIG ONCE [facility] Stop: 05/22/18 19:00 Cefazolin Sodium 1,000 mg/ (Sodium Chloride) 100 mls @ 200 mls/hr IV.SIG Q6H BANG Stop: 05/23/18 04:29 Last Admin: 05/22/18 16:32 Dose: 200 mls/hr Lactated Ringer's (Lr 1000 Ml Inj) 1,000 mls @ 80 mls/hr IV.CONT .[id number] [facility] Last Admin: 05/22/18 16:32 Dose: 80 mls/hr Morphine Sulfate (Morphine Inj) 30 mg in 30 mls @ 0 mls/hr [employer] UNSCH PRN PRN Reason: per [employer] parameters Stop: 05/23/18 12:21 Last Admin: 05/22/18 16:59 Dose: 0 mls/hr Lactobacillus Acidophilus (Lactinex) 1 tab PO DAILY [facility] Lactulose (Lactulose Liq) 30 ml PO DAILY PRN PRN Reason: SEVERE CONSITIPATION Miscellaneous Information ([facility]) 0 each OTHER UNSCH PRN PRN Reason: SEE DOSE INSTRUCTIONS Miscellaneous Information ([facility]) 0 each OTHER UNSCH PRN PRN Reason: SEE LABEL COMMENTS Stop: 05/23/18 12:08 Morphine Sulfate (Morphine Inj) 2 mg IV.PUSH Q3H PRN PRN Reason: BREAKTHROUGH PAIN Multivitamins (Theragran) 1 tab PO DAILY [facility] Naloxone HCl (Narcan Inj) 0.4 mg IV.PUSH PRN PRN PRN Reason: Resp rate < 10 Ondansetron HCl (Zofran Inj) 4 mg IV.PUSH Q6H PRN PRN Reason: NAUSEA OR VOMITING Pantoprazole Sodium (Protonix) 40 mg PO DAILY PRN PRN Reason: INDIGESTION Povidone Iodine (Betadine 7.5% Scrub) 1 applicatio TOPICAL ONCE [facility] Stop: 05/26/18 09:59 Last Admin: 05/22/18 09:20 Dose: 1 applicatio Senna/Docusate Sodium (Mey-Colace) 1 tab PO BID [facility] Sennosides (Senokot) 17.2 mg PO BID PRN PRN Reason: Moderate Constipation Sodium Chloride (Ns Flush) 2 ml IV.FLUSH BID [facility] Sodium Chloride (Ns Flush) 2 ml IV.FLUSH PRN PRN PRN Reason: FLUSH AFTER USING IV ACCESS Vitamin D (Vitamin D3) 5,000 unit PO DAILY [facility] Zolpidem Tartrate (Ambien) 5 mg PO HS PRN PRN Reason: INSOMNIA Allergies Allergy/AdvReac Type Severity Reaction Status Date / Time No Known Allergies Allergy Unverified 05/22/18 08:48 Home Medications Medication Instructions Recorded Confirmed Type alprazolam 0.25 mg PO Q6HR PRN 05/09/18 05/22/18 History cholecalciferol (vitamin D3) 5,000 unit PO DAILY 05/09/18 05/22/18 History [Vitamin D3] hydrocodone-acetaminophen 1 tab PO Q6H PRN 05/09/18 05/22/18 History lactobacillus comb no.10 20,000 mmu cells PO DAILY 05/09/18 05/22/18 History [Probiotic] lutein 20 mg PO DAILY 05/09/18 05/22/18 History menthol [Aspercreme Heat] 1 applic TOPICAL DAILY 05/09/18 05/22/18 History multivitamin [Daily Multiple] 1 tab PO DAILY 05/09/18 05/22/18 History naproxen sodium [Aleve] 220 mg PO BID PRN 05/09/18 05/22/18 History rabeprazole 20 mg PO DAILY PRN 05/09/18 05/22/18 History temazepam 30 mg PO HS PRN 05/09/18 05/22/18 History Exam Vital signs: Vital Signs 05/22/18 09:12 05/22/18 09:16 05/22/18 12:08 Temperature 98.5 F 96.5 F L Pulse Rate 75 75 93 H Respiratory Rate 18 15 Blood Pressure 132/73 131/76 Pulse Oximetry 100 100 100 05/22/18 12:15 05/22/18 12:30 05/22/18 12:45 Temperature Pulse Rate 93 H 83 82 Respiratory Rate 18 16 16 Blood Pressure 126/52 L 115/56 L 137/63 Pulse Oximetry 100 100 100 05/22/18 13:00 05/22/18 13:15 05/22/18 13:30 Temperature Pulse Rate 83 82 82 Respiratory Rate 15 15 15 Blood Pressure 134/61 141/61 H 137/60 Pulse Oximetry 100 100 100 05/22/18 14:00 05/22/18 14:30 05/22/18 15:00 Temperature Pulse Rate 87 89 96 H Respiratory Rate 16 15 17 Blood Pressure 137/70 142/71 H 157/71 H Pulse Oximetry 100 100 100 05/22/18 15:30 05/22/18 16:33 Temperature Pulse Rate 96 H Respiratory Rate 17 15 Blood Pressure 138/74 Pulse Oximetry 100 Intake & Output 1005/22/18 05/22/18 18:59 06:59 18:59 Intake Total 1560 / 1560 Output Total 50 / 50 Balance 1510 / 1510 Weight 55.52 kg Intake: IV 1560 / 1560 LR 1000 mL Inj 1,000 ML @ 30 1400 / 1400 mls/hr IV.CONT .Q24H ONE Rx#: [id number] Cyklokapron Inj 1,000 MG In NS 110 / 110 Inj 100 ML @ 200 mls/hr IV.SIG ONCE [facility] Rx#:[id number] Ancef 2 GM Premix Inj 2 gm In 50 / 50 50 ml @ 100 mls/hr IV.SIG LUMITE INJECTOR [facility] Rx#:[id number] Output: Estimated Blood Loss 50 / 50 Other: Weight On Admission 55.52 kg Narrative: GENERAL: 67 year old female in NAD, alert and oriented x3. SKIN: Warm and dry. HEAD: Atraumatic. Normocephalic. EYES: Pupils equal and round. No scleral icterus. No injection or drainage. ENT: No nasal bleeding or discharge. Mucous membranes pink and moist. NECK: Trachea midline. No JVD. CARDIOVASCULAR: Regular rate and rhythm. RESPIRATORY: No accessory muscle use. Clear to auscultation. Breath sounds equal bilaterally. GASTROINTESTINAL: Abdomen soft, non-tender, nondistended. Hepatic and splenic margins not palpable. MUSCULOSKELETAL: Extremities without clubbing, cyanosis, or edema. Right leg in cast. Neurovascularly intact. NEUROLOGICAL: Awake and alert. No obvious cranial nerve deficits. Motor grossly within normal limits. Normal speech. PSYCHIATRIC: Appropriate mood and affect; insight and judgment normal. Results - Labs Labs: Laboratory Results - last 24 hr 05/22/18 09:25 Blood Type A Positive Blood Type Recheck Required Antibody Screen Negative - Imaging Impressions Knee X-Ray 05/22/18 12:21 CONCLUSION: Postop changes right knee arthroplasty. Caprini VTE Risk Assessment Caprini VTE Risk Assessment: Moderate/High Risk (score >= 2) Caprini Risk Assessment Model: Point Value = 1 Point Value = 2 Point Value = 3 Point Value = 5 Age 41-60 Minor surgery BMI > 25 kg/m2 Swollen legs Varicose veins or History of unexplained or recurrent spontaneous Oral contraceptives or hormone replacement Sepsis (< 1 month) Serious lung disease, including pneumonia (< 1 month) Abnormal pulmonary function Acute myocardial infarction Congestive heart failure (< 1 month) History of inflammatory bowel disease Medical patient at bed rest Age 61-74 Arthroscopic surgery Major open surgery (> 45 min) Laparoscopic surgery (> 45 min) Malignancy Confined to bed (> 72 hours) Immobilizing plaster cast Central venous access Age >= 75 History of VTE Family history of VTE Factor V Leiden Prothrombin [id number] Lupus anticoagulant Anticardiolipin antibodies Elevated serum homocysteine Heparin-induced thrombocytopenia Other congenital or acquired thrombophilia Stroke (< 1 month) Elective arthroplasty Hip, pelvis, or leg fracture Acute spinal cord injury (< 1 month) Prophylaxis Regimen: Total Risk Factor Score Risk Level Prophylaxis Regimen 0-1 Low Early ambulation 2 Moderate Order ONE of the following: *Sequential Compression Device (SCD) *Heparin 5000 units SQ BID 3-4 Higher Order ONE of the following medications: *Heparin 5000 units SQ TID *Enoxaparin/Lovenox 40 mg SQ daily (WT < 150 kg, CrCl > 30 mL/min) *Enoxaparin/Lovenox 30 mg SQ daily (WT < 150 kg, CrCl > 10-29 mL/min) *Enoxaparin/Lovenox 30 mg SQ BID (WT < 150 kg, CrCl > 30 mL/min) AND/OR *Sequential Compression Device (SCD) 5 or more Highest Order ONE of the following medications: *Heparin 5000 units SQ TID (Preferred with Epidurals) *Enoxaparin/Lovenox 40 mg SQ daily (WT < 150 kg, CrCl > 30 mL/min) *Enoxaparin/Lovenox 30 mg SQ daily (WT < 150 kg, CrCl > 10-29 mL/min) *Enoxaparin/Lovenox 30 mg SQ BID (WT < 150 kg, CrCl > 30 mL/min) AND *Sequential Compression Device (SCD) Assessment and Plan - Plan The patient is a pleasant 67 year old female with a history of osteoarthritis, cervical and lumbar spine disease, hyperthyroid, anxiety and GERD who was admitted to the hospital for total right knee replacement. The patient had the surgery on 05/22/[address] Arriola and was admitted. The patient's PCP is Dr. Schultz. Hospitalists were consulted for medication management. Total right knee replacement Dr. Arriola recs Pain management Chronic pain Manage pain as above Hyperthyroid Stable, patient is not on home meds Anxiety Continue home meds GERD Patient is not on daily medication, protonix PRN Code Status: Full DVT ppx scd/teds , chemical ppx per surgeon Discussed with the patient, family , nurse
[2018-05-22] MEDS ORDERED: Zolpidem Tartrate 5 MG Tablet PO PRN (21:00)
[2018-05-22] MEDS: Senna/Docusate Sodium 8.6/50 MG Tablet PO SCH (21:15)
[2018-05-22] MEDS: Aspirin 325 MG Tablet PO SCH (21:15)
[2018-05-23 04:52] LABS: Hematocrit 32.5 % (35.0-46.0); Hemoglobin 11.1 gm/dL (11.6-15.3)
[2018-05-23] MEDS: Senna/Docusate Sodium 8.6/50 MG Tablet PO SCH ×2 (08:31→21:36)
[2018-05-23] MEDS: Aspirin 325 MG Tablet PO SCH ×2 (08:31→21:36)
[2018-05-23] MEDS: Lactobacillus Acidophilus/L. Spores Tablet PO SCH (08:32)
[2018-05-23] MEDS ORDERED: MENTHOL TOPICAL SCH (09:00)
--- NOTE | 2018-05-23 15:28 | P.PN ---
Subjective Interval history: Patient resting comfortably in bed. at bedside. Pain well-controlled. Denies chest pain, SOB, nausea, vomiting. Physical Exam Vital signs: Vital Signs 05/22/18 15:30 05/22/18 16:30 05/22/18 16:33 Temperature Pulse Rate 96 H 100 H Respiratory Rate 17 16 15 Blood Pressure 138/74 167/75 H Pulse Oximetry 100 99 05/22/18 17:30 05/22/18 18:05 05/22/18 18:52 Temperature 98 F 98.2 F Pulse Rate 96 H 97 H 96 H Respiratory Rate 15 15 16 Blood Pressure 133/64 131/76 143/68 H Pulse Oximetry 99 99 99 05/22/18 19:00 05/22/18 20:00 05/23/18 00:00 Temperature 97.6 F 98.2 F Pulse Rate 100 H 99 H Respiratory Rate 17 16 16 Blood Pressure 137/60 133/63 Pulse Oximetry 97 98 05/23/18 04:00 05/23/18 08:00 05/23/18 12:00 Temperature 98.2 F 98.5 F 97.2 F L Pulse Rate 62 92 H 94 H Respiratory Rate 16 13 15 Blood Pressure 90/54 L 121/56 L 127/58 L Pulse Oximetry 99 100 100 Intake & Output 05/22/18 05/23/18 05/23/18 18:59 06:59 18:59 Intake Total 2760 / 2760 2020 / 2020 300 / 300 Output Total 50 / 50 115 / 115 Balance 2710 / 2710 1905 / 1905 300 / 300 Weight 55.52 kg 57.5 kg Intake: IV 1560 / 1560 1300 / 1300 300 / 300 LR 1000 mL Inj 1,000 ML @ 80 1400 / 1400 1000 / 1000 300 / 300 mls/hr IV.CONT .[id number] BANG Rx# :[id number] Cyklokapron Inj 1,000 MG In NS 110 / 110 Inj 100 ML @ 200 mls/hr IV.SIG ONCE [facility] Rx#:[id number] Ancef 2 GM Premix Inj 2 gm In 50 / 50 50 ml @ 100 mls/hr IV.SIG [employer] BANG Rx#:[id number] Ancef Inj 1,000 MG In NS Inj 300 / 300 100 ML @ 200 mls/hr IV.SIG Q6H [facility] Rx#:[id number] Oral 1200 / 1200 720 / 720 Output: Estimated Blood Loss 50 / 50 Wound Drainage 115 / 115 # 1 Right Knee 115 / 115 Other: # Voids 4 Date of Last Bowel Movement 05/22/18 05/22/18 Weight On Admission 55.52 kg Narrative: GENERAL: 67 year old female in NAD, alert and oriented x3. SKIN: Warm and dry. HEAD: Atraumatic. Normocephalic. EYES: Pupils equal and round. No scleral icterus. No injection or drainage. ENT: No nasal bleeding or discharge. Mucous membranes pink and moist. NECK: Trachea midline. No JVD. CARDIOVASCULAR: Regular rate and rhythm. RESPIRATORY: No accessory muscle use. Clear to auscultation. Breath sounds equal bilaterally. GASTROINTESTINAL: Abdomen soft, non-tender, nondistended. Hepatic and splenic margins not palpable. MUSCULOSKELETAL: Extremities without clubbing, cyanosis, or edema. Right leg in cast. Neurovascularly intact. NEUROLOGICAL: Awake and alert. No obvious cranial nerve deficits. Motor grossly within normal limits. Normal speech. PSYCHIATRIC: Appropriate mood and affect; insight and judgment normal. Results - Labs CBC & Chem 7: 05/23/18 04:03 Laboratory Results - last 24 hr 05/23/18 04:03 Hgb 11.1 L Hct 32.5 L Assessment and Plan - Plan The patient is a pleasant 67 year old female with a history of osteoarthritis, cervical and lumbar spine disease, hyperthyroid, anxiety and GERD who was admitted to the hospital for total right knee replacement. The patient had the surgery on 05/22/[address] Arriola and was admitted. The patient's PCP is Dr. Schultz. Hospitalists were consulted for medication management. Total right knee replacement Dr. Arriola recs Pain management Chronic pain Manage pain as above Hyperthyroid Stable, patient is not on home meds Anxiety Continue home meds GERD Patient is not on daily medication, protonix PRN DVT ppx scd/teds , chemical ppx per surgeon Code Status: Full
--- NOTE | 2018-05-23 16:25 | P.PNADD ---
Addendum to Inpatient Note Additional information: No events overnight Medically stable VSS H/H stable Patient is stable from medical point. The hospitalist will sign off
[2018-05-24 08:46] VITALS: RESP 17
[2018-05-24] MEDS: Senna/Docusate Sodium 8.6/50 MG Tablet PO SCH (09:02)
[2018-05-24] MEDS: Aspirin 325 MG Tablet PO SCH (09:02)
[2018-05-24] MEDS: Lactobacillus Acidophilus/L. Spores Tablet PO SCH (09:02)
[2018-05-24 12:51] VITALS: BP 131/60; PULSE 96; TEMP 98; O2SAT 100
--- NOTE | 2018-05-25 10:14 | MD ---
cc: Eleazar Arriola MD, Joanne MD DATE OF DISCHARGE: 05/24/2018 ADMITTING DIAGNOSIS: Osteoarthritis, right knee. DISCHARGE DIAGNOSIS: Osteoarthritis, right knee. HISTORY: A 67-year-old white female with a 2-1/2-year history of progressive right knee pain of gradual onset following exercise activity while participating in a spinning class. She became symptomatic with generalized soreness about her right knee for which she had utilized Aspercreme that did initially proved to be of some limited benefit. She was initially evaluated in the office in November 2015, and at that time, her x-ray studies did reveal obvious degenerative changes involving the medial compartment with near [id number] apposition. The patient was diagnosed as having an arthritic condition for which treatment options were reviewed. She elected to continue with conservative management, which included taking diclofenac and conforming to exercise activity is under her own supervision. Her symptoms persisted. On followup evaluation, she did receive an intraarticular steroid injection as part of her ongoing management. Unfortunately, she became progressively more symptomatic with pain that began to limit all weightbearing activities, and in spite of her lingering discomfort, she was reluctant to consider operative intervention and thus continued with diclofenac and exercise. Additional participation in an exercise program did not prove to be of any further benefit. She returned to the office describing ongoing pain, at which time her x-ray studies revealed obvious degenerative change with [id number] apposition about the medial compartment associated with a varus deformity. Findings and treatment options were reviewed. The pros and cons of continuing with conservative management versus operative intervention that would involve total knee arthroplasty were outlined. The emphasis was made regarding the fact that the decision to proceed with surgery would be left entirely to the patient's discretion. The patient felt that her symptoms had progressed to that point in time where she was ready to proceed accordingly, and in compliance with her wishes, she was scheduled for admission in order that the above be accomplished. Her physical examination at the time of admission revealed no obvious swelling or effusion about the right knee. There was medial joint line tenderness without palpable deformity. Apprehension and compression sign were negative. Limited mobility in the 110 degree range of flexion with pain at the extreme of motion. No associated crepitation or instability. Kristy test and drawer sign negative. Pivot shift and Evangelist sign positive for medial compartment pain. Straight leg raising unremarkable at 80 degrees. Distal sensory grossly intact. Mild antalgic gait. HOSPITAL COURSE: Prior to admission to the hospital, the patient had a medical evaluation and clearance for surgery as completed by her primary care physician, Dr. Zulema Schultz. She was taken to the operating room on 05/22/2018, and on that date underwent a right total knee arthroplasty completed in an uncomplicated manner. The patient was noted to have tolerated her operative procedure well. Her postoperative course stable thereafter. Hemoglobin and hematocrit assessment postoperatively was 11.1 and 32.5 respectively. The patient was progressively mobilized under the guidance of physical therapy being permitted weightbearing to tolerance about the right lower extremity. Followup examination of her surgical wound noted to be intact, healing favorably with no evidence of infection. Medical followup per the hospitalist service. DVT prophylaxis initiated. [facility] [employer] consulted to assist with discharge planning. The patient indicated her desire to be discharged home and continue her rehabilitation on an outpatient basis. Plans were finalized in this regard and pending medical clearance, she was scheduled for discharge on the second postoperative day, at which time she was noted to be making favorable progress with her initial rehabilitation program. She was scheduled to be seen in office followup in approximately 4 weeks. CONDITION AT THE TIME OF DISCHARGE: Stable. PROGNOSIS: Favorable. DISCHARGE MEDICATIONS: Included hydrocodone 7.5/325, #30; aspirin 325 mg 1 tab twice daily for 3 weeks. MD KENNETH Price/avery , 06:30 AM , 06:38 AM
== END 2018-05-24 14:33 | disposition home health service (06) ==
LOC: HSDI 08:22 → N06 18:18
PROVIDERS: ADMIT Orthopaedic Surgery; ATTEND Orthopaedic Surgery